=== PATIENT | female | born 1970 | race Caucasian/White ===

== ENCOUNTER 2022-02-10 16:50 | Outpatient (CLI) | payer OTHER, SELFPAY ==
[2022-02-10 14:14] LABS: Cholesterol* 221 mg/dL (90-199); HDL Cholesterol* 52 mg/dL (>=50); LDL Cholesterol Calculated 122 mg/dL (<100); Triglycerides* 233 mg/dL (40-149)
== END 2022-02-10 16:51 | disposition home or self-care (01) ==
PROVIDERS: PCP Family Medicine; Visit Provider Family Medicine
DX: E78.5 Hyperlipidemia, unspecified (principal); E11.9 Type 2 diabetes mellitus without complications
CPT/HCPCS: 80061

== ENCOUNTER 2022-02-15 15:54 | Outpatient (CLI) | payer OTHER, SELFPAY ==
[2022-02-15 22:24] LABS: Creatinine Urine 133.5 mg/dL
[2022-02-15 22:28] LABS: Microalbumin Creatinine Ratio 10 mg/g (0-30); Microalbumin Urine 2 mg/dL
== END 2022-02-15 15:55 | disposition home or self-care (01) ==
LOC: LKVREF 15:56
PROVIDERS: PCP Family Medicine; Visit Provider Family Medicine
DX: E11.9 Type 2 diabetes mellitus without complications (principal); E78.5 Hyperlipidemia, unspecified; I10 Essential (primary) hypertension
CPT/HCPCS: 82043; 82570

== ENCOUNTER 2022-10-08 09:49 | Emergency (ER) | payer OTHER, SELFPAY ==
[2022-10-08 10:00] VITALS: BP 136/83; PULSE 124; RESP 20; TEMP 36; O2SAT 99; BMI 25.0
[2022-10-08 10:41] LABS: Basophils Absolute Auto 0.02 K/uL (0.00-0.30); Basophils Percent Auto 0.2 % (0.0-3.0); Eosinophils Absolute Auto 0.17 K/uL (0.00-0.50); Eosinophils Percent Auto 1.8 % (0.0-7.0); Hematocrit 37.7 % (33.0-51.0); Hemoglobin* 12.9 gm/dL (12.0-16.0); Immature Granulocytes Abs Auto 0.01 K/uL (0.00-0.30); Immature Granulocytes Pct Auto 0.1 %; Lymphocytes Absolute Auto 2.45 K/uL (0.90-2.90); Lymphocytes Percent Auto 26.3 % (20-44); Mean Corpuscular HGB Conc 34 gm/dL (32-36); Mean Corpuscular Hemoglobin 29 pg (26-34); Mean Corpuscular Volume 86 fL (80-100); Neutrophils Percent Auto 67.6 % (42.0-72.0); Platelet Count* 419 K/uL (140-440); RDW Coefficient of Variation % 12.9 % (11.5-15.5); Red Blood Count 4.39 m/uL (4.00-5.20); White Blood Count* 9.32 K/uL (4.50-11.00)
[2022-10-08 10:46] LABS: Chloride* 103 mmol/L (96-114); Potassium* 4.1 mmol/L (3.6-5.1); Sodium* 134 mmol/L (135-149)
--- NOTE | 2022-10-08 10:47 | ED_ITS ---
HPI - General Adult General Chief complaint: Vaginal Bleeding Stated complaint: heavy bleeding Time Seen by Provider: 10/08/22 10:41 History of Present Illness HPI narrative: Pt c/o increased Vaginal bleeding since yesterday. C/o dizziness and fatigue 52-year-old woman presenting to the emergency department with complaint of increased vaginal bleeding. Has anticipated entering menopause. She has now been having a period for little over a week. Reviewing her menses tracker it looks as though has been having extended menses every 3 weeks or so. Otherwise feeling all right. She has pictures showing blood in stool and large clots. She describes intermittently large gushes of blood. She has soaked some heavy pads. Just thinks this is not right at this point. Not nauseated. Not really lightheaded. No new shortness of breath. Not taking anticoagulant. Has been anticipating scheduling with [facility] for this bleeding matter. Related Data Home Medications Medication Instructions Recorded Confirmed B-complex with vitamin C 1 cap PO QDAY 02/15/22 07/01/22 ascorbic acid (vitamin C) 100 mg 100 mg PO DAILY 02/15/22 07/01/22 tablet lggahboaoy-lxbvjzvizztsj-pqwiaqrv 1 - 2 cap PO Q4H PRN 02/15/22 07/01/22 50 mg-325 mg-40 mg capsule cholecalciferol (vitamin D3) 25 1,000 unit PO DAILY 02/15/22 07/01/22 mcg (1,000 unit) tablet glucosamine 750 td-fccetp-xwk 2-C tab PO 02/15/22 07/01/22 30 mg-D3 1,000 unit-chaya 1 mg tablet (Hpgjihgppof-Ngwddtxszpk-MQE + vitD) magnesium gluconate 27 mg 27 mg PO QDAY 02/15/22 07/01/22 magnesium (500 mg) tablet multivitamin (Multiple Vitamins 1 tab PO QDAY 02/15/22 07/01/22 tablet) omega 1-egl-zfe-fish oil 100 cap PO 02/15/22 07/01/22 mg-160 mg-1,000 mg capsule (Fish Oil) Previous Rx's Medication Instructions Recorded glipizide 5 mg tablet, extended 10 mg (2 x 5 mg) PO QDAY #180 tabs 02/15/22 release 24 hr (Glucotrol XL) metformin 1,000 mg tablet 1,000 mg PO BID #180 tabs 02/15/22 lisinopril 10 1 tab PO QDAY #90 tabs 06/30/22 mg-hydrochlorothiazide 12.5 mg tablet medroxyprogesterone 10 mg tablet 20 mg (2 x 10 mg) PO TID 7 days 10/08/22 (Provera) #42 tabs Allergies Allergy/AdvReac Type Severity Reaction Status Date / Time amoxicillin Allergy Intermediate Rash Verified 07/06/22 14:55 Sulfa (Sulfonamide Allergy Intermediate Verified 07/06/22 14:55 Antibiotics) penicillin V Allergy Mild Rash Verified 07/06/22 14:55 HAYFEVER Allergy Mild Rash Uncoded 07/06/22 14:55 Review of Systems Status of ROS: Reports: 6 or more systems reviewed and unremarkable except as noted in History and below PFSH PFS Medical History Otalgia ?H92.09 - Otalgia, unspecified ear (ICD-10) Surgical History History of ovarian cystectomy ?Z98.890 - Other specified postprocedural states (ICD-10) ?Z87.42 - Personal history of other diseases of the female genital tract (ICD-10) Family History Other Diabetes Social History Smoking Status: Never smoker Exam Narrative: Exam Narrative: Pleasant. NAD. Skin is warm and dry. Breathing easily. Lungs appear to be clear. Heart initially tachycardic. Regular rhythm. Abdomen is soft. Mildly tender to palpation full in the suprapubic area. No flank pain. Extremities are well perfused without edema. Mucous membranes are appropriately pink. Const: Vital Signs, click to edit/add: Vital Signs - 24 hr 10/08/22 10:00 Temperature 96.8 F L Pulse Rate [Pulse Oximeter] 124 H Respiratory Rate 20 Blood Pressure [Ri ght Upper Arm] 136/83 Pulse Oximetry 99 Oxygen Delivery Me thod Room Air Documenting provider has reviewed patient's vital signs: yes Course Vital Signs Vital signs: Initial Vital Signs Temperature 96.8 F L 10/08/22 10:00 Temperature Source Temporal Artery Scan 10/08/22 10:00 Pulse Rate 124 H 10/08/22 10:00 Pulse Rhythm Irregular 10/08/22 10:00 Respiratory Rate 20 10/08/22 10:00 Blood Pressure 136/83 10/08/22 10:00 Blood Pressure Mean 100 10/08/22 10:00 Pulse Oximetry 99 10/08/22 10:00 Oxygen Delivery Method Room Air 10/08/22 10:00 Vital Signs Temperature 96.8 F L 10/08/22 10:00 Pulse Rate 124 H 10/08/22 10:00 Respiratory Rate 20 10/08/22 10:00 Blood Pressure 136/83 10/08/22 10:00 Pulse Oximetry 99 10/08/22 10:00 Oxygen Delivery Method Room Air 10/08/22 10:00 Temperature 96.8 F L 10/08/22 10:00 Pulse Rate 78 10/08/22 11:28 Respiratory Rate 8 L 10/08/22 11:28 Blood Pressure 136/83 10/08/22 10:00 Pulse Oximetry 98 10/08/22 11:28 Oxygen Delivery Method Room Air 10/08/22 11:28 Medical Decision Making MDM Narrative Medical decision making narrative: Think it would be prudent to check hemoglobin and other labs and monitor for continued bleeding here in the emergency department. Will be receiving IV fluids. I have ordered also transvaginal/pelvic ultrasound as initial assessment. Did speak with parking meter collector. Notes persistent presence of fibroids. I suspect these are likely the reason for this prolonged and heavier bleeding. I would anticipate eventual need for hysterectomy. I did discuss this with Chrissy. Over time in the emergency department had no further episodes of ?gushes as noted prior. Heart rate improved/slowed. COMPARISON: January 08, 2019. FINDINGS: Uterus: 13.8 x 7.8 x 9.2 cm.? Enlarged heterogeneous uterus with multiple fibroids, with largest measuring up to 9.6 centimeters. Endometrium: Endometrium is obscured by multiple large fibroids. Bilateral ovaries are not visualized. Cul-de-sac: No significant free fluid.? ? 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 This obscures the endometrium. If there is persistent vaginal bleeding, consider direct visualization. Nonvisualization of the ovaries. Discussed this case with fruit and vegetable packer on-call. Recommending medroxyprogesterone course and follow-up with considerations as noted above. See patient discharge plan Lab Data Lab results reviewed: Yes I reviewed the patient's lab results Labs: Lab Results 10/08/22 10/08/22 Range/Units 10:25 12:52 WBC 9.32 Cancelled (4.50-11.00) K/uL Corrected WBC Cancelled RBC 4.39 Cancelled (4.00-5.20) m/uL Hgb 12.9 Cancelled (12.0-16.0) gm/dL Hct 37.7 Cancelled (33.0-51.0) % MCV 86 Cancelled (80-100) fL MCH 29 Cancelled (26-34) pg MCHC 34 Cancelled (32-36) gm/dL RDW Coeff of Manuel 12.9 Cancelled (11.5-15.5) % Plt Count 419 Cancelled (140-440) K/uL Neut % (Auto) 67.6 Cancelled (42.0-72.0) % Lymph % (Auto) 26.3 Cancelled (20-44) % Stark % (Auto) 4.0 Cancelled (0.0-11.0) % Eos % (Auto) 1.8 Cancelled (0.0-7.0) % Baso % (Auto) 0.2 Cancelled (0.0-3.0) % Neut # (Auto) 6.30 Cancelled (1.7-7.0) K/uL Lymph # (Auto) 2.45 Cancelled (0.90-2.90) K/uL Stark # (Auto) 0.40 Cancelled (0.00-0.90) K/UL Eos # (Auto) 0.17 Cancelled (0.00-0.50) K/uL Baso # (Auto) 0.02 Cancelled (0.00-0.30) K/uL Sodium 134 L (135-149) mmol/L Potassium 4.1 (3.6-5.1) mmol/L Chloride 103 (96-114) mmol/L Carbon Dioxide 21 (20-32) mmol/L BUN 13 (7-30) mg/dL Creatinine 0.5 (0.5-1.5) mg/dL Estimated Creat Clear 115.74 Estimated GFR 111 ml/min Glucose 233 H (60-115) mg/dL Calcium 8.9 (8.4-10.6) mg/dL Discharge Plan Discharge Clinical Impression: DUB (dysfunctional uterine bleeding), Fibroids Patient Disposition: Home, Self-Care Condition: Stable Additional Instructions: Please call to [facility] make an appointment. Sounds like there was some of the things they would like to get sorted yet. If you begin bleeding again, can take Provera as prescribed to hopefully stop the bleeding. If you continue to bleed such that you are soaking through 1 heav y pad an hour for 2 consecutive hours, be re-evaluated. Prescriptions: New medroxyprogesterone [Provera] 10 mg tablet 20 mg PO TID 7 Days Qty: 42 1RF No Action cholecalciferol (vitamin D3) 25 mcg (1,000 unit) tablet 1,000 unit PO DAILY ascorbic acid (vitamin C) 100 mg tablet 100 mg PO DAILY multivitamin [Multiple Vitamins] Tablet 1 tab PO QDAY magnesium gluconate 27 mg magnesium (500 mg) tablet 27 mg PO QDAY Bkorhsjk-Srgikj-ZXM with vit D 750-30-1,000-1 ra-rs-ykol-mg tablet PO Fish Oil 100-160-1,000 mg capsule PO B-complex with vitamin C Capsule 1 cap PO QDAY vuzfbcznic-sotdebmysxbux-ugjf 50-325-40 mg capsule 1 - 2 cap PO Q4H PRN Rx Instructions: MAX 6/DAY metformin 1,000 mg tablet 1,000 mg PO BID Qty: 180 1RF glipizide [Glucotrol XL] 5 mg tablet extended release 24hr 10 mg PO QDAY Qty: 180 1RF lisinopril-hydrochlorothiazide 10-12.5 mg tablet 1 tab PO QDAY Qty: 90 0RF Follow Up/Referrals: Mikael Paul MD [Primary Care Provider] - Stand Alone Forms: [employer] Info Instructions
[2022-10-08 10:48] LABS: Creatinine* 0.5 mg/dL (0.5-1.5); Est. Creatinine Clearance* 115.74; Estimated Glomerular Filt Rate 111 ml/min
[2022-10-08 10:49] LABS: Blood Urea Nitrogen* 13 mg/dL (7-30); Calcium* 8.9 mg/dL (8.4-10.6); Carbon Dioxide* 21 mmol/L (20-32); Glucose* 233 mg/dL (60-115); Slide Review Reflex No
[2022-10-08] MEDS: 0.9 % SODIUM CHLORIDE 1000 ml 1,000 ML IV (10:59)
--- NOTE | 2022-10-08 11:27 | CRLHL7_ITS ---
For Patients: As a result of the Century Cures Act, medical imaging exams and procedure reports are released immediately into your electronic medical record. You may view this report before your referring provider. If you have questions, please contact your health care provider. INDICATION: Heavy vaginal bleeding. TECHNIQUE: Ultrasound pelvis transvaginal for better assessment or to better visualize the endometrium. Real-time sonographic images with spectral and color Doppler imaging of the ovaries were obtained. COMPARISON: January 08, 2019. FINDINGS: Uterus: 13.8 x 7.8 x 9.2 cm. Enlarged heterogeneous uterus with multiple fibroids, with largest measuring up to 9.6 centimeters. Endometrium: Endometrium is obscured by multiple large fibroids. Bilateral ovaries are not visualized. Cul-de-sac: No significant free fluid. 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 This obscures the endometrium. If there is persistent vaginal bleeding, consider direct visualization. Nonvisualization of the ovaries. Dictated by Tyler Meyer MD @ 10/08/2022 1:09:24 PM (Electronically Signed)
[2022-10-08 11:28] VITALS: PULSE 78; RESP 8; O2SAT 98
== END 2022-10-08 13:42 | disposition home or self-care (01) ==
PROVIDERS: Emergency Provider Family Medicine; PCP Family Medicine
DX: N93.8 Other specified abnormal uterine and vaginal bleeding (principal); D21.9 Benign neoplasm of connective and other soft tissue, unspecified
CPT/HCPCS: 36415; 76830; 80048; 85025; 96360; 99284; J7030

== ENCOUNTER 2022-11-03 08:52 | Outpatient (CLI) | payer OTHER, SELFPAY | END 2022-11-03 08:53 | disposition home or self-care (01) | LOC: NFLDREF 11-04 07:40 | PROVIDERS: PCP Family Medicine; Referring Provider Family Medicine; Visit Provider Family Medicine | DX: E11.9 Type 2 diabetes mellitus without complications (principal); E78.5 Hyperlipidemia, unspecified; I10 Essential (primary) hypertension | CPT/HCPCS: 80053; 80061; 82043; 82570; 82607; 84443 ==

== ENCOUNTER 2022-11-16 13:12 | Outpatient (CLI) | payer OTHER, SELFPAY | END 2022-11-16 13:13 | disposition home or self-care (01) | LOC: NFLDREF 13:17 | PROVIDERS: PCP Family Medicine; Visit Provider Physician Assistant | DX: N92.0 Excessive and frequent menstruation with regular cycle (principal) | CPT/HCPCS: 83001 ==